=== PATIENT | male | born 1940 | race Caucasian/White ===

== ENCOUNTER 2017-05-05 16:37 | Inpatient (IN) | payer OTHER ==
[~2017-05-05] VITALS: Ht 182.9 cm; Wt 80.3 kg
[~2017-05-05 16:37] MED LIST: ALBU0.63 INH; FLUT12HF2 INH; TIOT18CA INH
[2017-05-05] MEDS ORDERED: ALBUTEROL/IPRATROPIUM 2.5MG/0.5MG, 3 ML ONE (17:26)
[2017-05-05] MEDS ORDERED: SODIUM CHLORIDE FLUSH 10ML SYR IVF ONE (17:30)
[2017-05-05] MEDS ORDERED: SODIUM CHLORIDE 0.9% 1,000ML IVBOLUS ONE ×2 (17:30→20:30)
[2017-05-05 17:48] LABS: ASPARTATE AMINO TRANSFERASE 23 U/L (15-37); BLOOD UREA NITROGEN 18 mg/dL (7-18)
[2017-05-05 17:53] LABS: IS PT STATUS REG ER OR PRE ER? YES
[2017-05-05] MEDS ORDERED: OMNIPAQUE 350 MG/ML, 100ML BOTTLE ONE (18:21)
[2017-05-05] MEDS ORDERED: methylPREDNISolone SOD SUCC 125 MG/2 ML IVPush ONE (18:30)
[2017-05-05] MEDS ORDERED: CEFTRIAXONE 1,000 MG in SODIUM CHLORIDE 0.9% 50 ML IV ONE (18:30)
[2017-05-05] MEDS ORDERED: AZITHROMYCIN 500 MG in SODIUM CHLORIDE 0.9% 250 ML IV ONE (18:30)
[2017-05-05] MEDS ORDERED: PLEASE ENTER ALLERGIES MC SCH ×2 (18:30)
[2017-05-05] MEDS ORDERED: CEFTRIAXONE PMX 1GM/50ML 50 ML ONE (18:54)
[2017-05-05] MEDS ORDERED: methylPREDNISolone SOD SUCC 125 MG/2 ML ONE ×2 (18:54→18:55)
[2017-05-05] MEDS ORDERED: LABETALOL 5MG/ML, 20ML IVPush PRN (21:00)
[2017-05-05] MEDS ORDERED: TEMAZEPAM 15 MG CAPSULE PO PRN (21:00)
[2017-05-05] MEDS ORDERED: DOCUSATE 100 MG CAPSULE PO PRN (21:00)
[2017-05-05] MEDS ORDERED: GUAIFENESIN/DM 200-20MG, 10ML UDC PO PRN (21:00)
[2017-05-05] MEDS ORDERED: ALBUTEROL SULFATE 2.5 MG/3 ML NPPB PRN ×3 (21:00→22:30)
[2017-05-05] MEDS: methylPREDNISolone SOD SUCC 40 MG/ML IVPush SCH (23:22)
[2017-05-06 02:32] VITALS: BP 92/52
[2017-05-06 02:49] VITALS: BP 101/59
[2017-05-06] MEDS: methylPREDNISolone SOD SUCC 40 MG/ML IVPush SCH ×4 (03:39→21:00)
[2017-05-06 05:27] LABS: BLOOD UREA NITROGEN 18 mg/dL (7-18)
[2017-05-06] MEDS ORDERED: CEFTRIAXONE PMX 1GM/50ML 50 ML IV SCH (06:30)
[2017-05-06 06:50] VITALS: BP 104/66
[2017-05-06] MEDS: ALBUTEROL SULFATE 2.5 MG/3 ML NPPB SCH ×4 (08:37→20:00)
[2017-05-06] MEDS ORDERED: ALBUTEROL SULFATE 2.5 MG/3 ML HHN SCH (09:00)
[2017-05-06] MEDS: ENOXAPARIN 40 MG/0.4 ML SQ SCH (09:00)
[2017-05-06] MEDS: NICOTINE 21 MG/24 HR PATCH.TD24 TD SCH (09:10)
[2017-05-06] MEDS ORDERED: MAGNESIUM SULFATE PMX 2GM/50ML 50 ML IV ONE (12:00)
[2017-05-06 12:45] VITALS: BP 106/57
[2017-05-06] MEDS: DOXYCYCLINE 100 MG in DEXTROSE 5% 250 ML IV SCH (15:08)
[2017-05-06] MEDS: CEFTRIAXONE PMX 1GM/50ML 50 ML IV SCH (17:33)
[2017-05-06] MEDS ORDERED: AZITHROMYCIN 500 MG in SODIUM CHLORIDE 0.9% 250 ML IV SCH (18:30)
[2017-05-06 20:01] VITALS: BP 113/69
[2017-05-07 01:32] VITALS: BP 117/51
[2017-05-07] MEDS: DOXYCYCLINE 100 MG in DEXTROSE 5% 250 ML IV SCH ×2 (02:47→14:43)
[2017-05-07 05:32] LABS: BLOOD UREA NITROGEN 23 mg/dL (7-18)
[2017-05-07 05:53] LABS: DIFF TOTAL CELLS COUNTED 100 CELL DIFF
[2017-05-07 05:55] LABS: VERIFY COUNTS? YES
[2017-05-07 07:00] VITALS: BP 126/60
[2017-05-07] MEDS: ALBUTEROL SULFATE 2.5 MG/3 ML NPPB SCH ×4 (07:01→19:07)
[2017-05-07] MEDS: methylPREDNISolone SOD SUCC 40 MG/ML IVPush SCH ×3 (08:13→20:32)
[2017-05-07] MEDS: ENOXAPARIN 40 MG/0.4 ML SQ SCH (08:13)
[2017-05-07] MEDS: NICOTINE 21 MG/24 HR PATCH.TD24 TD SCH (08:13)
[2017-05-07 13:08] VITALS: BP 118/68
[2017-05-07] MEDS: CEFTRIAXONE PMX 1GM/50ML 50 ML IV SCH (18:33)
[2017-05-07 19:41] VITALS: BP 138/72
[2017-05-07] MEDS: MINERA CRM, 60GM TP SCH (20:32)
[2017-05-08 02:00] VITALS: BP 140/74
[2017-05-08] MEDS: DOXYCYCLINE 100 MG in DEXTROSE 5% 250 ML IV SCH ×2 (03:00→14:59)
[2017-05-08 06:45] VITALS: BP 140/64
[2017-05-08] MEDS: ALBUTEROL SULFATE 2.5 MG/3 ML NPPB SCH ×3 (07:00→13:43)
[2017-05-08] MEDS: methylPREDNISolone SOD SUCC 40 MG/ML IVPush SCH (07:55)
[2017-05-08] MEDS: NICOTINE 21 MG/24 HR PATCH.TD24 TD SCH (07:55)
[2017-05-08] MEDS: MINERA CRM, 60GM TP SCH ×2 (09:04→21:00)
[2017-05-08] MEDS: ENOXAPARIN 40 MG/0.4 ML SQ SCH (11:25)
[2017-05-08 14:23] VITALS: BP 116/57
[2017-05-08] MEDS: CEFTRIAXONE PMX 1GM/50ML 50 ML IV SCH (17:45)
[2017-05-08 19:00] VITALS: BP 123/61
[2017-05-08 21:16] VITALS: BP_SYST 122; BP_SYST 130; BP_SYST 142; BP_DIAS 65; BP_DIAS 70
[2017-05-09 01:21] VITALS: BP 114/61
[2017-05-09] MEDS: ASPIRIN 81 MG TABLET EC PO SCH (05:21)
[2017-05-09 06:56] VITALS: BP 148/72
[2017-05-09 07:00] VITALS: BP 108/66
[2017-05-09 07:02] VITALS: BP 127/68
[2017-05-09] MEDS: ENOXAPARIN 40 MG/0.4 ML SQ SCH (08:03)
[2017-05-09] MEDS: NICOTINE 21 MG/24 HR PATCH.TD24 TD SCH (08:03)
[2017-05-09] MEDS: DOXYCYCLINE 100MG TABLET PO SCH ×2 (08:03→21:56)
[2017-05-09] MEDS: MINERA CRM, 60GM TP SCH ×2 (08:04→21:00)
[2017-05-09 14:00] VITALS: BP 132/64
[2017-05-09] MEDS: CEFTRIAXONE PMX 1GM/50ML 50 ML IV SCH (17:51)
[2017-05-09 20:19] VITALS: BP_SYST 115; BP_SYST 122; BP_SYST 138; BP_DIAS 61; BP_DIAS 70; BP_DIAS 71
[2017-05-10] VITALS (7 sets, daily range): BP systolic 99–161; BP diastolic 51–76
[2017-05-10] MEDS: ASPIRIN 81 MG TABLET EC PO SCH (05:48)
[2017-05-10] MEDS: MINERA CRM, 60GM TP SCH ×2 (08:57→20:07)
[2017-05-10] MEDS: DOXYCYCLINE 100MG TABLET PO SCH ×2 (08:57→20:08)
[2017-05-10] MEDS: ENOXAPARIN 40 MG/0.4 ML SQ SCH (08:58)
[2017-05-10] MEDS: NICOTINE 21 MG/24 HR PATCH.TD24 TD SCH (08:58)
[2017-05-10] MEDS: CEFTRIAXONE PMX 1GM/50ML 50 ML IV SCH (18:02)
[2017-05-11 02:04] VITALS: BP 132/72
[2017-05-11] MEDS: ASPIRIN 81 MG TABLET EC PO SCH (06:02)
[2017-05-11 06:57] VITALS: BP_SYST 108; BP_SYST 127; BP_SYST 141; BP_DIAS 68; BP_DIAS 70; BP_DIAS 75
[2017-05-11] MEDS: MINERA CRM, 60GM TP SCH (08:33)
[2017-05-11] MEDS: NICOTINE 21 MG/24 HR PATCH.TD24 TD SCH (08:33)
[2017-05-11] MEDS: ENOXAPARIN 40 MG/0.4 ML SQ SCH (08:33)
[2017-05-11] MEDS: DOXYCYCLINE 100MG TABLET PO SCH (08:33)
[2017-05-11 08:44] LABS: ASPARTATE AMINO TRANSFERASE 82 U/L (15-37); BLOOD UREA NITROGEN 24 mg/dL (7-18)
[2017-05-11 09:22] LABS: DIFF TOTAL CELLS COUNTED 100 CELL DIFF
[2017-05-11 09:24] LABS: ANISOCYTOSIS 1+; VERIFY COUNTS? YES
[2017-05-11] MEDS ORDERED: AMOXICILLIN/CLAV 875-125MG TABLET PO SCH (10:00)
[2017-05-11] MEDS ORDERED: AMOX1TAB12 PO (10:28)
[2017-05-11] MEDS ORDERED: PRED20TA PO (10:28)
[2017-05-11] MEDS ORDERED: BUDE10.2 INH (10:29)
[2017-05-11] MEDS ORDERED: ASPI-515 PO (10:39)
[2017-05-11] MEDS ORDERED: ATOR20TA9 PO (10:42)
[2017-05-11] MEDS ORDERED: CYANOCOBALAMIN 1,000 MCG/ML, 1ML IM ONE (12:00)
== END 2017-05-11 14:32 | disposition home or self-care (01) | DRG 871 ==
LOC: ED 19:10 → EDIP 19:51 → 4WST 21:17
PROVIDERS: ADMIT Internal Medicine; ATTEND Internal Medicine
DX: A41.9 Sepsis, unspecified organism (principal); E43 Unspecified severe protein-calorie malnutrition; J18.9 Pneumonia, unspecified organism; J96.01 Acute respiratory failure with hypoxia; J44.1 Chronic obstructive pulmonary disease with (acute) exacerbation; E87.1 Hypo-osmolality and hyponatremia; E87.2 Acidosis; G45.9 Transient cerebral ischemic attack, unspecified; J44.0 Chronic obstructive pulmonary disease with (acute) lower respiratory infection; E78.5 Hyperlipidemia, unspecified; F17.210 Nicotine dependence, cigarettes, uncomplicated; M50.30 Other cervical disc degeneration, unspecified cervical region; I35.8 Other nonrheumatic aortic valve disorders; I48.0 Paroxysmal atrial fibrillation; I77.819 Aortic ectasia, unspecified site; T38.0X5A Adverse effect of glucocorticoids and synthetic analogues, initial encounter; W18.30XA Fall on same level, unspecified, initial encounter; Z82.49 Family history of ischemic heart disease and other diseases of the circulatory system; Z82.5 Family history of asthma and other chronic lower respiratory diseases; Y93.89 Activity, other specified; Y92.89 Other specified places as the place of occurrence of the external cause; Z68.24 Body mass index [BMI] 24.0-24.9, adult; R65.20 Severe sepsis without septic shock
CPT/HCPCS: 36415; 70551; 71010; 71275; 72050; 80048; 80053; 82607; 83605; 83880; 84145; 84484; 85025; 85379; 85610; 85730; 87040; 87150; 93005; 93306; 93880; 94640; 96365; 96375; J0456; J0696; J1650; J7060; J7613; Q9967; J2920; J2930; J3420; J3475; J7030; J7050; J7512